=== PATIENT | female | born 2005 | race Caucasian/White ===

== ENCOUNTER 2025-07-27 00:29 | Emergency (ER) | payer OTHER, SELFPAY ==
--- NOTE | ~2025-07-27 | CT_ITS ---
CT HEAD NON-CONTRAST CT C-SPINE Clinical History: head injury Comparison: None Technique: Unenhanced axial images skull base to vertex. Coronal, sagittal reformats. Axial images thoracic inlet to skull base. Sagittal and coronal reformats. CT images acquired with automatic exposure control for dose reduction DLP: 681 mGy-cm Findings: Head: Sulci, ventricles: Unremarkable. No intracerebral hemorrhage. No evidence acute territorial infarct. No mass effect, midline shift, intra-/extra-axial fluid collection. Bony calvarium intact. Visualized paranasal sinuses: Small maxillary fluid. Mastoid air cells: Clear. C-spine: No acute fracture or listhesis. Mild reversal of normal cervical lordosis. No significant degenerative changes. Disc spaces maintained. Prevertebral soft tissues within normal limits. Visualized lung apices: Clear. Visualized thyroid: Unremarkable. No enlarged cervical nodes. CT FACE: No fracture. IMPRESSION: HEAD: 1. No acute intracranial findings. C-SPINE: 1. No acute fracture. CT FACE: 1. No fracture. Reviewed, dictated and finalized at location R. IMPRESSION: HEAD: 1. No acute intracranial findings. C-SPINE: 1. No acute fracture. CT FACE: 1. No fracture.
--- OUTSIDE RECORDS SUMMARY | 2025-07-27 00:31 | XMS_ITS | Clinical Summary ---
Author Organization [facility] Address [address] [place] [address] Care Team Providers Care Workday Financials Consultant Name Role Phone Sarah Conteh MD Primary Care Provider [phone] Source Comments [facility],non-owned Affiliates and Associated Physician Practices is amultiple site organization consisting of ambulatory clinics and hospital sitesin [place], [place], [place] and [place]. This disclosure is being madepursuant to the Care Everywhere program and may not contain all information available regarding this patient. Last updated 18.[facility] Allergies No known active allergies Medications * Be aware that medications may not be up to date on this document. Alwaysverify current medications with the patient. 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) 11/02/2018 Immunizations Immunization Administration Dates Next Due MENINGOCOCCAL ACWY (MCV4P) VAC IM 12/01/2016 TDAP (7yrs+) 08/12/2016 Family History Medical History Relation Name Comments Diabetes - Type 2 Neg Hx Glaucoma Neg Hx Macular Degeneration Neg Hx Social History Tobacco Use Types Packs/Day Years Used Date Smoking Tobacco: Never Smokeless Tobacco: Never Alcohol Use Standard Drinks/Week Comments Never 0 (1 standard drink = 0.6 oz pur e alcohol) AUDIT-C Answer Date Recorded Frequency of Alcohol Consumption Never 09/24/2019 Average Number of Drinks Not on file 019 Frequency of Binge Drinking Not on file 09/06 Comments No Sex and Gender Information Value Date Recorded Sex Assigned at Not on file Legal Sex Female 5:44 AM [employer] Gender Identity Not on file Sexual Orientation Not on file Last Filed Vital Signs Vital Sign Reading Time Taken Comments Blood Pressure 100/70 05/02/2020 9:27 AM CDT Pulse 82 05/02/2020 9:27 AM CDT Temperature 36.5 C (97.7 F) 06/24/2019 9:46 AM CDT Respiratory Rate 18 05/02/2020 9:27 AM CDT Oxygen Saturation 98% 05/02/2020 9:27 AM CDT Inhaled Oxygen Concentration - - Weight 46.8 kg (103 lb 2.8 oz) 05/02/2020 9:27 A M CDT Height 164.2 cm (5' 4.65) 05/02/2020 9:27 AM CD T Body Mass Index 17.36 05/02/2020 9:27 AM CDT Plan of Treatment Health Maintenance Due Date Last Done Comments HIV SCREENING 2020 HPV VACCINE (1 - 3-dose series) 2020 CHLAMYDIA/GONORRHEA SCREENING 2021 MENINGOCOCCAL (Group B) VACC INE SHARED DECISION-MAKING (1 of 2 - Standard) 2021 HEPATITIS C SCREENING 06/01/2023 HEPATITIS B VACCINE (1 of 3 - 19+ 3-dose series) 2024 DEPRESSION SCREENING 10/06/2024 COVID-19 VACCINE (1 - 2023-2 5 season) 2025 INFLUENZA VACCINE (#1) 2025 DTAP/TDAP/TD VACCINES (2 - T d or Tdap) 08/12/2026 08/12/2016 ZOSTER VACCINE (1 of 2) 2055 MENINGOCOCCAL GROUPS A/C/Y/W VACCINE Aged Out 12/01/2016 No longer eligible b ased on patient's age to complete this topic HIB VACCINE Aged Out No longer eligi ble based on patient's age to complete this topic PNEUMOCOCCAL VACCINE Aged Out No long er eligible based on patient's age to complete this topic Insurance [facility] Advance Directives * Full Code (Latest Code Status on File) Date Activated Date Inactivated Comments 11/24/2024 11:22 PM Care Teams Workday Financials Consultant Relationship Specialty Start Date End Date Sarah Conteh MD [address] [place] [phone] PCP - General Pediatrics 04/07/20
--- NOTE | 2025-07-27 00:48 | ED_ITS ---
HPI - Head Injury General Chief complaint: Head Injury Stated complaint: Nose might be broken Time Seen by Provider: 07/27/25 00:37 History of Present Illness HPI Narrative: Pt is a 20-year-old female who presents to the ER after sustaining head injury at work. 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 Patient is concerned her nose is broken. She denies loss of consciousness, nausea/vomiting, or b lurry vision. Patient does endorse a headache, pain at the base of her skull, photophobia, in difficulty breathing through her nose. She denies any medical history relevant to this ER visit and does not take any daily medication. Related Data Allergies Allergy/AdvReac Type Severity Reaction Status Date / Time No Known Allergies Allergy Unverified 02/06/17 13:13 Review of Systems Review of Systems: All systems reviewed & are unremarkable except as noted in HPI and below Exam Narrative: GENERAL: Well appearing, well-nourished, non-toxic, in no acute distress. HEAD: Normocephalic, atraumatic. Slightly swollen bridge of nose with no visible bleeding from nares. NECK: Supple. No adenopathy, no masses. Mildly tender at base of skull with palpation RESPIRATORY: Airway patent, respirations nonlabored. Clear to auscultation bilaterally, no rales, rhonchi, wheezing. CARDIOVASCULAR: Regular rate and rhythm without murmurs, rubs, or gallops. Peripheral pulses 2+ and equal bilaterally. ABDOMINAL: Soft, nontender, nondistended, no hepatosplenomegaly. Normoactive BS. MUSCULOSKELETAL: Moves all extremities. Strength/ROM intact without gross deformities. SKIN: Warm, dry, normal color. No rashes. NEURO: A&O X3. Speech clear. Cranial nerves II-XII intact. No ataxic movements. PSYCHIATRIC: Appropriate mood and affect. Normal interaction. Course Vital Signs Vital signs: Vital Signs Respiratory Rate 16 07/27/25 01:33 Blood Pressure 121/59 L 07/27/25 01:33 Pulse Oximetry 100 07/27/25 01:33 Pulse Rate 83 07/27/25 02:05 Respiratory Rate 16 07/27/25 02:05 Blood Pressure 108/68 07/27/25 02:05 Pulse Oximetry 100 07/27/25 02:05 MDM - Head Injury [facility] Narrative Medical decision making narrative: Pt is a 20-year-old female who presents to the ER after sustaining head injury at work. 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 Patient is concerned her nose is broken. She denies loss of consciousness, nausea/vomiting, or blurry vision. Patient does endorse a headache, pain at the base of her skull, photophobia, in difficulty breathing through her nose. She denies any medical history relevant to this ER visit and does not take any daily medication. Labs Ordered: None necessary Imaging Ordered: CT brain, CT facial and cervical spine Medications Ordered: Morphine 2 mg x2, 1 L normal saline IV bolus, Results: Patient's CT facial indicates no significant acute traumatic injury identified involving the maxillofacial region. Specifically, no nasal bone fracture identified. Patient's cervical spine CT scan indicates no acute osseous traumatic injury of significant acute traumatic abnormal alignment involving the cervical spine. Her CT head indicates no intracranial hemorrhage. No significant mass effect or midline shift. No skull fracture. No traumatic effusions involving the paranasal sinuses or mastoid air cells. Diagnosis: Facial trauma, nasal injury Patient Education/Shared MDM: Results of lab work shared with patient. She endorses improvement of symptoms following medication administration, but will also be given a dose of Toradol IV prior to discharge. Patient strongly advised to follow-up with her PCP as soon as possible. She will not be discharged home with any new prescriptions, but was advised to take Tylenol and ibuprofen as needed for pain control. Strict return precautions provided. Patient verbalized understanding and is in agreement with plan. Vital signs stable at time of discharge. All questions answered. Differential Diagnosis Differential diagnosis: Likely concussion without loss of consciousness, closed head injury and other (Facial fracture) Imaging Data Attestation: I personally reviewed and interpreted this imaging study as follows: Radiologist's impression: Patient's CT facial indicates no significant acute traumatic injury identified involving the maxillofacial region. Specifically, no nasal bone fracture identified. Patient's cervical spine CT scan indicates no acute osseous traumatic injury of significant acute traumatic abnormal alignment involving the cervical spine. Her CT head indicates no intracranial hemorrhage. No significant mass effect or midline shift. No skull fracture. No traumatic effusions involving the paranasal sinuses or mastoid air cells. Discharge Plan Discharge Clinical Impression: Concussion without loss of consciousness, Facial trauma, Injury to nose Patient Disposition: Home Condition: Stable Instructions: Antibiotic Form, Concussion (ED) Additional Instructions: Please return to the ER with any worsening symptoms. Follow-up with primary care provider as needed. You may take Tylenol and ibuprofen as needed for pain control. Please continue to ice the site. Patient Language: Ivorian Follow-up/Referrals: Pj Funes MD [Physician, Family Practice] Referral Note: PCP PHYSICIAN,CREATIVE COORDINATOR [Primary Care Provider, Internal Medicine] Stand Alone Forms: Work/School Release IP Time of Disposition: 02:47
[2025-07-27] MEDS: SODIUM CHLORIDE 0.9% IV 1,000 ML 999 ML IV CONT (01:03)
[2025-07-27] MEDS: MORPHINE SULFATE (*CRX) 4 MG/ML INJ 2 MG IV PUSH ×2 (01:03→01:58)
[2025-07-27 01:33] VITALS: BP 121/59; RESP 16; O2SAT 100
[2025-07-27 01:45] VITALS: O2SAT 99
[2025-07-27 02:00] VITALS: O2SAT 100
[2025-07-27 02:01] VITALS: BP 88/75; RESP 16
[2025-07-27 02:05] VITALS: BP 108/68; PULSE 83; RESP 16; O2SAT 100
[2025-07-27] MEDS: KETOROLAC 15 MG/ML VIAL (*BKC) IV PUSH (03:04)
== END 2025-07-27 03:12 | disposition home or self-care (01) ==
PROVIDERS: Emergency Provider Registered Nurse
DX: S06.0X0A Concussion without loss of consciousness, initial encounter (principal); S09.92XA Unspecified injury of nose, initial encounter; W22.8XXA Striking against or struck by other objects, initial encounter
CPT/HCPCS: 70450; 70486; 72125; 96361; 96374; 96375; 96376; 99284; J1885; J2270; J7030